=== PATIENT | female | born 1945 | race Caucasian/White ===

== ENCOUNTER 2018-11-25 05:39 | Inpatient (IN) | payer OTHER ==
[2018-11-25] MEDS ORDERED: ROPIVACAINE 0.2% 80 MG, EPINEPHrine 0.2 MG in SYRINGE 0 ML IU ONE (06:00)
[2018-11-25] MEDS ORDERED: TRANEXAMIC ACID 3,000 MG in NS (SYRINGE) 50 ML IRR ONE (06:00)
--- NOTE | 2018-11-25 06:08 | PDHPUP ---
History & Physical Update H&P update statement: This history and physical update is based on an assessment of the patient which was completed after admission or registration (within 24 hours), but prior to the surgery/procedure. H&P update: H&P reviewed & patient examined, no change in patient's condition since H&P completed
[2018-11-25] MEDS ORDERED: ceFAZolin 2 GM/DEXTROSE 100 ML IV ONE (06:23)
[2018-11-25] MEDS ORDERED: DEXAMETHASONE 4 MG/ML VIAL IVP ONE (06:23)
[2018-11-25] MEDS ORDERED: ACETAMINOPHEN 325 MG TAB PO ONE (06:23)
[2018-11-25] MEDS ORDERED: FAMOTIDINE 20 MG TAB PO ONE (06:23)
[2018-11-25] MEDS ORDERED: LR 1,000 ML IV ONE (06:24)
[2018-11-25] MEDS ORDERED: TRANEXAMIC ACID 3,000 MG/50 ML BAG IRR ONE (07:03)
[2018-11-25] MEDS ORDERED: MIDAZOLAM 2 MG/2 ML VIAL IVP ONE (07:23)
--- NOTE | 2018-11-25 07:26 | PDANEPAE ---
ANE History of Present Illness 72 year old with right hip arthritis ANE Past Medical History - Cardiovascular History Hx Hypertension: Yes Hx Arrhythmias: No Hx Chest Pain: No Hx Coronary Artery / Peripheral Vascular Disease: No Hx CHF / Valvular Disease: No Hx Palpitations: No - Pulmonary History Hx COPD: No Hx Asthma/Reactive Airway Disease: No Hx Recent Upper Respiratory Infection: No Hx Oxygen in Use at Home: No Hx Sleep Apnea: No Sleep Apnea Screening Result - Last Documented: Negative - Neurologic History Hx Cerebrovascular Accident: No Hx Seizures: No Hx Dementia: No - Endocrine History Hx Diabetes: No - Renal History Hx Renal Disorders: No - Liver History Hx Hepatic Disorders: No - Neurological & Psychiatric Hx Hx Neurological and Psychiatric Disorders: Yes Neurological / Psychiatric History Comment: anxiety - Cancer History Hx Cancer: No - Congenital Disorder History Hx Congenital Disorders: No - GI History Hx Gastrointestinal Disorders: Yes Gastrointestinal History Comment: Acid reflux, IBS - Other Health History Other Health History: BILAT CATARACT SX. Detures full on top partial on bottom - Chronic Pain History Chronic Pain: No - Surgical History Prior Surgeries: none in last 5 yrs. 12yrs ago breast surgery to remove milk ducts ANE Review of Systems Review of systems is: negative Review of Systems: - Exercise capacity METS (RN): 4 METS ANE Patient History - Allergies Allergies/Adverse Reactions: aspirin Allergy (Verified 11/11/18 10:54) Swelling/neck,face,throat buspirone [From BuSpar] Allergy (Verified 11/11/18 10:54) Dyspnea/Hives metoclopramide [From Reglan] Allergy (Verified 11/11/18 10:54) Vomiting/Shakes Penicillins Allergy (Verified 11/11/18 10:54) Other-Enter Comments Sulfa (Sulfonamide Antibiotics) Allergy (Verified 11/11/18 10:54) Hives most abx Allergy (Uncoded 11/11/18 10:55) Other-Enter Comments - Home Medications Home Medications: Acetaminophen [Tylenol ES 500 mg (*)] 1,000 mg PO Q6 PRN 11/11/18 [Last Taken Unknown] Clorazepate Dipotassium 3.75 mg PO BID 11/11/18 [Last Taken Unknown] Hydrochlorothiazide [HCTZ (*)] 12.5 mg PO DAILY 11/11/18 [Last Taken Unknown] Irbesartan [Avapro 75 mg (*)] 75 mg PO DAILY 11/11/18 [Last Taken Unknown] Metoprolol Succinate Xr [Toprol Xl 25 mg (*)] 25 mg PO DAILY 11/11/18 [Last Taken Unknown] Multivitamins [Multivitamin (*)] 1 each PO DAILY 11/11/18 [Last Taken Unknown] Omeprazole 20 mg PO DAILY PRN 11/11/18 [Last Taken Unknown] Ondansetron Odt [Zofran Odt 4 mg (*)] 4 mg PO Q8HRS PRN 11/11/18 [Last Taken Unknown] Propylene Glycol/Peg 400/Pf [Systane 0.3-0.4% Eye Drops] 1 each OP DAILY PRN [Last Taken Unknown] - NPO status NPO Since - Liquids (Date): 11/25/18 NPO Since - Liquids (Time): 06:30 NPO Since - Solids (Date): 11/24/18 NPO Since - Solids (Time): 22:00 - Anes Hx Anes Hx: no prior problems - Smoking Hx Smoking Status: Never smoked - Alcohol Use Alcohol Use: None - Family Anes Hx Family Hx Anesthesia Complications: nne ANE Labs/Vital Signs - Vital Signs Blood Pressure: 128/91 Heart Rate: 66 Respiratory Rate: 14 O2 Sat (%): 100 Height: 162.56 cm Weight: 74.616 kg ANE Physical Exam - Airway Neck exam: FROM Mallampati Score: Class 2 Mouth exam: normal dental/mouth exam - Pulmonary Pulmonary: no respiratory distress - Cardiovascular Cardiovascular: regular rate and rhythym - ASA Status ASA Status: II ANE Anesthesia Plan Anesthesia Plan: spinal
[2018-11-25] MEDS ORDERED: PROPOFOL/EMULSION 500 MG/50 ML BOTTLE IV ONE (07:38)
[2018-11-25] MEDS ORDERED: fentaNYL 100 MCG/2 ML INJ ONE ×2 (07:38→10:06)
[2018-11-25] MEDS ORDERED: BUPIVACAINE 0.5% 30 ML SDV ONE (07:41)
[2018-11-25] MEDS ORDERED: PROMETHAZINE HCL 25 MG/ML INJ IVP PRN ×2 (09:04→09:27)
[2018-11-25] MEDS ORDERED: NALOXONE HCL 0.4 MG/ML INJ IVP PRN (09:04)
[2018-11-25] MEDS ORDERED: DEXAMETHASONE 4 MG/ML VIAL IVP PRN (09:04)
[2018-11-25] MEDS ORDERED: MAGNESIUM HYDROXIDE 30 ML UDCUP PO PRN (09:27)
[2018-11-25] MEDS ORDERED: POLYETHYLENE GLYCOL 3350 17 GM PKT PO PRN (09:27)
[2018-11-25] MEDS ORDERED: LACTULOSE 20 GM/30 ML UDCUP PO PRN (09:27)
[2018-11-25] MEDS ORDERED: METOCLOPRAMIDE 10 MG/2 ML VIAL IVP PRN (09:27)
[2018-11-25] MEDS ORDERED: ONDANSETRON DISINTEGRATING 4 MG TAB PO PRN (09:27)
[2018-11-25] MEDS ORDERED: BISACODYL 10 MG SUPP PR PRN (09:27)
[2018-11-25] MEDS ORDERED: PROMETHAZINE HCL 25 MG SUPPR PR PRN (09:27)
[2018-11-25] MEDS ORDERED: TEMAZEPAM 15 MG CAP PO PRN (09:27)
[2018-11-25] MEDS ORDERED: diphenhydrAMINE 25 MG CAP PO PRN (09:27)
[2018-11-25] MEDS ORDERED: ONDANSETRON 4 MG/2 ML VIAL IVP PRN (09:27)
[2018-11-25] MEDS ORDERED: DIPHENOXYLATE/ATROPINE LOMOTIL 1 TAB PO PRN (09:27)
--- NOTE | 2018-11-25 09:27 | POSTOPPROG ---
Post Op Note Date of Operation: 11/25/18 Surgeon: Genia Limon Regional Sales Executive: Harleen Fonseca PAC Anesthesiologist: Dr. Quintero Warm Anesthesia: Spinal Pre-op Diagnosis: right hip OA Post-op Diagnosis: same Indication: right hip pain Procedure: RTHA Findings: severe OA of right hip Inf/Abcess present in the surg proc area at time of surgery?: No EBL: 50-100
[2018-11-25] MEDS ORDERED: LR 1,000 ML IV SCH (09:30)
--- NOTE | 2018-11-25 09:33 | POSTANESTH ---
Post Anesthetic Evaluation Cardiovascular Status: Normal, Stable Respiratory Status: Normal, Stable Level of Consciousness/Mental Status: Can Participate in Eval Pain Control: Adequate, Prn Tx Ordered Nausea/Vomiting Control: Adequate, Prn Tx Ordered Complications Possibly Related to Anesthesia: None Noted
[2018-11-25] MEDS ORDERED: oxyCODONE IR 5 MG TAB ONE (10:06)
[2018-11-25] MEDS: fentaNYL 100 MCG/2 ML INJ IVP PRN ×2 (10:08→10:21)
[2018-11-25] MEDS: oxyCODONE IR 5 MG TAB PO PRN ×3 (10:13→21:58)
[2018-11-25] MEDS: CYCLOBENZAPRINE 10 MG TAB PO PRN ×2 (10:57→21:58)
[2018-11-25] MEDS ORDERED: ceFAZolin 2 GM/DEXTROSE 100 ML IV SCH (14:00)
[2018-11-25] MEDS: ACETAMINOPHEN 325 MG TAB PO SCH ×2 (14:14→20:06)
--- NOTE | 2018-11-25 15:23 | SOAPPROG ---
SOAP Progress Note Assessment/Plan: Assessment: s/p right EMANUEL anterior approach - POD 0 - performed by Dr. Limon Doing well Plan: Begin d/c planning - likely home tomorrow. Her and family members will help care for her post-op Continue VTE ppx- aspirin 81 mg BID, EMERITA baker, SCDs. We will monitor aspirin use since she has had previous swelling in the past with NSAIDS Continue PT efforts - WBAT with assistance initially, ROM as tolerated, follow anterior total hip precautions Continue oral pain medication Subjective: Patient states she is doing ok, the hip joint is a bit sore. She is hoping to go home tomorrow. She denies SOB, CP, fever, chills, nausea. Objective: Vital Signs Temp Pulse Resp BP Pulse Ox 36.6 C 71 16 121/62 H 99 11/25/18 14:00 11/25/18 14:00 11/25/18 14:00 11/25/18 14:00 11/25/18 14:00 11/24/18 11/25/18 11/26/18 05:59 05:59 05:59 Intake Total 1000 Output Total 450 Balance 550 Patient resting in bed, there are several family members in the room. RLE: Wound dressings on the anterior hip are clean, dry and intact. No erythema, ecchymosis. EMERITA hose and SCDs are in place. Lower leg compartments are soft and nontender. Negative Homans sign bilaterally. She can actively DF and PF her right foot and great toe against resistance. Grossly NVI distally. ICD10 Worksheet Patient Problems: Problems Problem Status Onset Unilateral primary osteoarthritis, right hip Acute
[2018-11-25] MEDS: ceFAZolin 2 GM/DEXTROSE 100 ML IV SCH ×2 (15:43→23:31)
--- NOTE | 2018-11-25 15:49 | PDMN ---
Medical Necessity Medical necessity: [facility] IP only surgery; cpt [id number] R EMANUEL
[2018-11-25] MEDS: SENNOSIDES/DOCUSATE SODIUM TAB PO SCH (20:06)
[2018-11-25] MEDS: ASPIRIN 81 MG CHEWABLE TAB PO SCH (20:06)
[2018-11-25] MEDS: FAMOTIDINE 20 MG TAB PO SCH (20:06)
[2018-11-25] MEDS: CLORAZEPATE 7.5 MG TAB PO SCH (20:06)
[2018-11-25] MEDS ORDERED: ASPIRIN 81 MG CHEWABLE TAB PO SCH (21:00)
[2018-11-26] MEDS: ACETAMINOPHEN 325 MG TAB PO SCH ×2 (02:03→09:48)
[2018-11-26] MEDS: oxyCODONE IR 5 MG TAB PO PRN (04:37)
--- NOTE | 2018-11-26 08:26 | GOP ---
[f rep st] OPERATIVE REPORT DATE OF OPERATION: 11/25/2018 SURGEON: Nathaniel Limon MD SECURITY ENGINEER: Aria North PA-C. ANESTHESIA: Spinal. PREOPERATIVE DIAGNOSIS: Right hip osteoarthritis. POSTOPERATIVE DIAGNOSIS: Right hip osteoarthritis. PROCEDURE PERFORMED: Right total hip arthroplasty. FINDINGS: ESTIMATED BLOOD LOSS: 200 cc. INDICATIONS: The patient has progressively worsening arthritis of the hip which has failed medical m anagement. The patient understands the treatment options including continued non-operative care and has selected surgical intervention. The patient has decided to undergo total hip arthroplasty via th e direct anterior approach, understanding the risks of the procedure including, but not limited to, n eurovascular injury, infection, persistent pain, component wear and loosening, deep venous thrombosis , pulmonary embolism, limb length inequality, hip instability (including dislocation), and intra-oper ative fractures. DESCRIPTION OF PROCEDURE: After proper identification of the patient including verification and woo ing the surgical site, the patient was brought to the operating room and placed in the supine positio n. All bony prominences were well padded. Anesthesia was induced without complication and intraveno us prophylactic antibiotics were administered prior to skin incision. The operative leg was placed in the Trumpf Arch table extension and the well leg in a Yellofin leg ho lder. The patient was prepped and draped in the usual sterile fashion. The C-arm was draped for int ra-operative fluoroscopy to check acetabular position, femoral component position including leg lengt h and femoral offset. Attention was then drawn to surgical exposure of the hip. An incision was made with a #10 Bard Harper r blade starting 3 cm lateral and 3 cm distal to the anterior superior iliac spine measuring 8-10 cm and coursing distally toward the greater trochanter. The skin and subcutaneous tissues were divided sharply down to the fascia nirmal. The fascia nirmal was incised in line with the skin incision exposing the underlying tensor fascia nirmal muscle. The muscle was bluntly elevated from the fascia and the f irst extracapsular Cobra retractor was placed laterally at the junction of the superior femoral neck and greater trochanter. The lateral femoral circumflex vessels were identified, cauterized, and divi ded with the Aquamantys bipolar cautery. The deep investing fascia of the TFL was divided to allow p danni mobilization of the muscle preventing damage during the retraction. The reflected head of the rectus femoris muscle was elevated off the anterior hip capsule and a medial Cobra retractor was plac ed just proximal to the lesser trochanter. The anterior capsulotomy was made sharply from the superolateral acetabulum to the saddle junction of the superior femoral neck and greater trochanter, then coursing inferomedial towards the lesser troc hanter. The retractors were then placed in the intracapsular position for femoral neck osteotomy. C orresponding to pre-operative templating, the osteotomy was made with the oscillating saw carefully p rotecting the greater trochanter and soft tissues. The femoral head was removed from the acetabulum with a corkscrew and confirmed to be severely arthritic with exposed bone, deformity and osteophytes. Similar findings were confirmed in the acetabulum. The Arch table extension was then placed in 40 degrees external rotation. Attention was then drawn to the acetabular preparation. After placement of the anterior and posterio r Cobra retractors outside the labrum and intracapsular, the circumferential labrum was removed sharp ly. The foveal contents were then removed and hemostasis obtained with cautery. The first reamer selected was sized using the removed femoral head. Reaming began with medialization and then commenced in 2 mm increments at 45 degrees of abduction and 15 degrees of anteversion using fluoroscopic navigation. Reaming ceased 1 mm less than the definitive acetabular component and kit esponded to the pre-operative templating. The final acetabular component was inserted using fluorosc opy to achieve proper orientation yielding excellent purchase and stability in the acetabulum. The f inal acetabular liner was then placed and its seating confirmed. Attention was then turned to the femur. The Arch table extension was placed in extension and adducti on, delivering the osteotomized femoral neck into the wound. A 2-pronged femoral elevator was placed at the calcar and another at the tip of the greater trochanter. The posterolateral capsule was rele ased with cautery allowing mobilization of the femur lateral and anterior for preparation. The exter nal rotators were visualized and preserved. A curette and rongeur were used to open the starting poi nt for broaching. Serial broaching started with the #0 broach and ended with the broach that exhibit ed excellent fit in the proximal femur. A change in pitch during mallet strikes was accompanied by t he inability to advance the broach any further. The trial reduction was performed and fluoroscopic n avigation was utilized to check limb length. Adjustments were made to equalize limb length according ly. After the final trials were accepted they were removed and the wound was copiously lavaged. The femo ral component was seated to the same depth as the final broach and the femoral head was impacted onto the clean trunnion. The hip was then reduced for the final time and once more fluoroscopy was used to check that limb length equality was achieved. The wound was irrigated and closed in layers, the fascia nirmal with 2-0 Quill, the subcutaneous tissue with 2-0 Quill, and the skin with Dermabond. Sterile dressings were applied. Final sharps and spon ge counts were accurate. The patient was then transferred to a hospital bed and brought to the [facility] room in stable condition. IMPLANTS: Accolade II size 5 x 127 acetabular component and Trident II 50 mm. Liner is Trident X3, 32 mm. Head is a Biolox Delta 32 mm, +0. /[id number]/MODL
--- NOTE | 2018-11-26 08:34 | SOAPPROG ---
SOAP Progress Note Assessment/Plan: Assessment: s/p right EMANUEL anterior approach - POD 1 - performed by Dr. Limon Anemia - expected initially post-op, asymptomatic, continue to monitor Plan: Continue d/c planning - doing better than expected and would like to go home today. Her and family members will help care for her post-op Continue VTE ppx- she tolerated aspirin 81 mg BID, continue this for 4 weeks; EMERITA hose x 2 weeks Continue PT efforts - WBAT with walker as needed, ROM as tolerated, follow anterior total hip precautions. Needs clearance from PT prior to d/c Continue oral pain medication Subjective: Patient states she is doing well, pain is controlled. She tolerated the baby aspirin yesterday and did not have any swelling. She feels well enough to go home today. Patient denies SOB, CP, fever, chills, numbness, tingling. Objective: Vital Signs Temp Pulse Resp BP Pulse Ox 36.7 C 80 126 H 123/66 H 95 11/26/18 08:00 11/26/18 08:00 11/26/18 08:00 11/26/18 08:00 11/26/18 08:00 Laboratory Results 11/26/18 05:15 11/26/18 05:15 11/25/18 11/26/18 11/27/18 05:59 05:59 05:59 Intake Total 1410 400 Output Total 950 Balance 460 400 Patient doing well, no acute distress. RLE: Wound dressings are clean, dry and intact. Skin intact, mild diffuse edema. Lower leg compartments are soft and nontender. She can actively DF and PF her right foot and great toe against resistance. Grossly NVI distally. ICD10 Worksheet Patient Problems: Problems Problem Status Onset Unilateral primary osteoarthritis, right hip Acute
--- NOTE | 2018-11-26 08:41 | PDDCSUM ---
Discharge Summary Discharge Summary: ADMISSION DIAGNOSIS: Right hip severe degenerative arthritis DISCHARGE DIAGNOSIS: Right hip severe degenerative arthritis OPERATION PERFORMED: November 25, 2018, Right total hip arthroplasty, anterior approach POSTOPERATIVE COMPLICATIONS: None CONDITION ON DISCHARGE: Improved HPI: The patient is a 72 year old female who has end-stage arthritis of her right hip. Clinical and radiographic features are consistent with this. Patient has failed attempts at conservative management, therefore, recommended operative right total hip replacement. DESCRIPTION OF HOSPITAL COURSE: The patient was admitted to the hospital on the morning of surgery and underwent a right total hip arthroplasty, anterior approach. Postoperatively, patient was treated with multimodal DVT prophylaxis, including aspirin 81 mg twice per day, SCDs and EMERITA hose. Patient was seen by PT and made good progress with ambulation and stairs. On the first post- operative day the patients H&H was 10.3/30.3. Patient was able to void spontaneously. Patient has done better than expected and would like to be discharged home today. At the time of discharge, patient was afebrile, wound was clean and dry. Patient is walking with a walker. DISPOSITION: The patient is discharged home and may have outpatient PT in approximately 3 weeks. Patient may progress to full weightbearing on the right lower extremity as tolerated. EMERITA stockings for 2 weeks during the daytime. Aspirin 81 mg twice per day for 4 weeks. Patient has prescriptions for Celebrex , oxycodone, Flexeril for pain control and muscle spasms. The patient will be seen by Dr. Aviles office in approximately 3 weeks. If there are any problems, patient is to call Dr. Aviles office.
[2018-11-26] MEDS ORDERED: HYDROCHLOROTHIAZIDE 12.5 MG CAP PO SCH (09:00)
[2018-11-26] MEDS ORDERED: PANTOPRAZOLE SODIUM 40 MG TAB PO PRN (09:00)
[2018-11-26] MEDS ORDERED: METOPROLOL SUCCINATE XR 25 MG TAB PO SCH (09:00)
[2018-11-26] MEDS ORDERED: IRBESARTAN 75 MG TAB PO SCH (09:00)
[2018-11-26] MEDS: CLORAZEPATE 7.5 MG TAB PO SCH (09:48)
[2018-11-26] MEDS: FAMOTIDINE 20 MG TAB PO SCH (09:48)
[2018-11-26] MEDS: SENNOSIDES/DOCUSATE SODIUM TAB PO SCH (09:48)
[2018-11-26] MEDS: ASPIRIN 81 MG CHEWABLE TAB PO SCH (09:51)
[2018-11-26 09:52] VITALS: BP 129/80
--- NOTE | 2018-11-26 14:08 | ASMTLACE ---
LACE Length of stay for Answers: 2 days current admission Acuity / Level of Answers: Yes Care: Did the patient have an inpatient admission? Comorbidities - select Answers: Other Notes: HTN all that apply # of Emergency department Answers: 0 visits in the last 6 months Social determinants Answers: Mental health diagnosis (anxiety, depression, pers onality disorders, etc.) Score: 9 Date Signed: 11/26/2018 02:08 PM Electronically Signed By:DANNY Pickett
== END 2018-11-26 11:58 | disposition home or self-care (01) | DRG 470 ==
LOC: F3N 05:39
PROVIDERS: ADMIT Orthopaedic Surgery; ATTEND Orthopaedic Surgery
PROC: 0SR904A Replacement of Right Hip Joint with Ceramic on Polyethylene Synthetic Substitute, Uncemented, Open Approach (ICD-10-PCS; principal; 2018-11-25 08:00)
DX: M16.11 Unilateral primary osteoarthritis, right hip (principal); I10 Essential (primary) hypertension; F41.9 Anxiety disorder, unspecified; K21.9 Gastro-esophageal reflux disease without esophagitis; G43.909 Migraine, unspecified, not intractable, without status migrainosus
CPT/HCPCS: 97110-GP; 97116-GP; 97161-GP; J0171; J0690; J1100; J2250; J2704; J2795; J3010